=== PATIENT | female | born 1980 | race Hispanic/Latino ===

== ENCOUNTER 2017-12-17 07:04 | Emergency (ER) | payer BC ==
[2017-12-17] MEDS ORDERED: HYDROCODONE/APAP 10/325 TAB ONE (07:38)
[2017-12-17] MEDS ORDERED: MORPHINE 4 MG/ML SYR ONE (07:38)
[2017-12-17] MEDS ORDERED: SILVER SULFADIAZINE 1% 25 GM TOP ONE ×2 (07:39→08:39)
[2017-12-17] MEDS ORDERED: ONDANSETRON 4 MG (ODT) TAB ONE (07:39)
[2017-12-17] MEDS ORDERED: LIDOCAINE VISCOUS 2% SOLN 15 ML UDC ONE (07:42)
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
[2017-12-17] MEDS ORDERED: TETANUS & DIPHTHERIA TOX,ADULT 0.5 ML VIAL ONE (08:05)
== END 2017-12-17 09:15 | disposition home or self-care (01) ==
LOC: ER 07:04
PROC: 0HDJXZZ Extraction of Left Upper Leg Skin, External Approach (ICD-10-PCS; principal; 2017-12-17)
DX: T24.212A Burn of second degree of left thigh, initial encounter (principal); T24.111A Burn of first degree of right thigh, initial encounter; T24.121A Burn of first degree of right knee, initial encounter; T24.131A Burn of first degree of right lower leg, initial encounter; T25.111A Burn of first degree of right ankle, initial encounter; T31.0 Burns involving less than 10% of body surface; X12.XXXA Contact with other hot fluids, initial encounter; Y93.89 Activity, other specified; Y92.018 Other place in single-family (private) house as the place of occurrence of the external cause; Z72.0 Tobacco use
CPT/HCPCS: 90714; 96372; 99284